=== PATIENT | female | born 1955 | race Caucasian/White ===

== ENCOUNTER 2021-05-05 18:30 | Inpatient (IN) | payer MEDICARE, OTHER ==
[~2021-05-05] VITALS: Ht 160 cm; Wt 95.3 kg
[2021-05-05] MEDS ORDERED: HYDROCODONE/APAP 10MG-325MG TAB PO ONE (19:00)
[2021-05-05] MEDS ORDERED: ACETAMINOPHEN 325 MG TAB ONE (21:44)
[2021-05-05] MEDS ORDERED: ACETAMINOPHEN 325 MG TAB PO ONE (21:45)
[2021-05-05] MEDS ORDERED: MORPHINE SULFATE INJ 2 MG/ML SYR IV PRN (23:00)
[2021-05-05] MEDS: CEFTRIAXONE 1 GM in SODIUM CHLORIDE 0.9% 50ML 50 ML IV SCH (23:10)
[2021-05-05] MEDS ORDERED: SODIUM CHLORIDE 0.9% 1000ML 1,000 ML IV STA (23:18)
[2021-05-05 23:19] LABS: BASOPHILS % 0.3 % (0.0-1.0); EOSINOPHILS % 0.3 % (0.0-6.0); HEMATOCRIT 37.4 % (34.2-44.1); HEMOGLOBIN 11.5 g/dL (12.0-16.0); LYMPHOCYTES # (AUTO) 0.8 (1.0-3.2); MEAN CORPUSCULAR HGB CONC 30.7 g/dL (31-35); MEAN CORPUSCULAR VOLUME 91.2 fL (81-99); MONOCYTES # (AUTO) 0.7 (0.2-0.8); MONOCYTES % 5.9 % (4.4-11.3); NEUTROPHILS # (AUTO) 10.4 (2.1-6.9); NEUTROPHILS % 86.2 % (38.7-80.0); PLATELET COUNT 247 x10e3/uL (140-360); RED CELL DISTRIBUTION WIDTH 13.8 % (11.7-14.4)
[2021-05-05] MEDS ORDERED: SODIUM CHLORIDE 0.9% 1000ML 1,000 ML ONE (23:23)
[2021-05-05 23:40] LABS: ALBUMIN 3.8 g/dL (3.5-5.0); ALBUMIN/GLOBULIN RATIO 1.2 (0.8-2.0); ANION GAP 16.2 mmol/L (8-16); CALCIUM 8.9 mg/dL (8.4-10.2); CREATININE, SERUM 1.15 mg/dL (0.57-1.11); POTASSIUM 4.2 mmol/L (3.5-5.1)
[2021-05-06 00:03] VITALS: BP 162/77
[2021-05-06] MEDS: ONDANSETRON HCL INJ 2MG/ML 2ML 2 MG/ML VIAL IV PRN ×4 (02:34→23:54)
[2021-05-06] MEDS: FENTANYL CITRATE/PF 100MCG/2 ML INJ IV PRN ×2 (02:34→12:04)
[2021-05-06] MEDS ORDERED: KETOROLAC TROMETHAMINE 30 MG/ML VIAL IV STA (05:58)
[2021-05-06] MEDS ORDERED: KETOROLAC TROMETHAMINE 30 MG/ML VIAL ONE (06:04)
[2021-05-06 06:30] LABS: BASOPHILS % 0.4 % (0.0-1.0); EOSINOPHILS # (AUTO) 0.2 (0.0-0.4); HEMATOCRIT 38.7 % (34.2-44.1); HEMOGLOBIN 11.5 g/dL (12.0-16.0); LYMPHOCYTES # (AUTO) 1.3 (1.0-3.2); LYMPHOCYTES % 13.1 % (18.0-39.1); MEAN CORPUSCULAR HEMOGLOBIN 27.9 pg (28-32); MEAN CORPUSCULAR HGB CONC 29.7 g/dL (31-35); MEAN CORPUSCULAR VOLUME 93.9 fL (81-99); MONOCYTES # (AUTO) 0.7 (0.2-0.8); MONOCYTES % 7.5 % (4.4-11.3); NEUTROPHILS # (AUTO) 7.5 (2.1-6.9); NEUTROPHILS % 76.7 % (38.7-80.0); PLATELET COUNT 210 x10e3/uL (140-360); RED BLOOD COUNT 4.12 x10e6/uL (3.6-5.1); RED CELL DISTRIBUTION WIDTH 13.8 % (11.7-14.4)
[2021-05-06 07:05] LABS: ALBUMIN 3.5 g/dL (3.5-5.0); ALBUMIN/GLOBULIN RATIO 1.1 (0.8-2.0); ANION GAP 14.5 mmol/L (8-16); CALCIUM 8.4 mg/dL (8.4-10.2); POTASSIUM 4.5 mmol/L (3.5-5.1)
[2021-05-06 08:44] LABS: BACTERIA,URINE FEW /HPF; CLARITY,URINE CLEAR (CLEAR); COLOR,URINE YELLOW (YELLOW); EPITHELIAL CELLS,URINE FEW /LPF; KETONES,URINE NEGATIVE (NEGATIVE); LEUKOCYTE ESTERASE ,URINE NEGATIVE (NEGATIVE); NITRITE,URINE NEGATIVE (NEGATIVE); PROTEIN,URINE DIPSTICK 1+ (NEGATIVE); RBC,URINE 0-5 /HPF (0-5); URINE UROBILINOGEN 0.2 mg/dL (0.2 - 1)
[2021-05-06] MEDS ORDERED: IPRATROPIUM BROMIDE 0.02% 2.5 ML NEB NEB STA (13:07)
[2021-05-06] MEDS ORDERED: ALBUTEROL SULF 0.083% NEB SOLN 3 ML NEB NEB STA (13:07)
[2021-05-06] MEDS ORDERED: ALBUTEROL/IPRATROPIUM 3 ML NEB ONE (13:18)
[2021-05-06 16:19] VITALS: BP 121/34
[2021-05-06 16:50] VITALS: BP 121/34
[2021-05-06] MEDS ORDERED: EVISTA60 MG PO (17:05)
[2021-05-06] MEDS ORDERED: LEVOTHYROXINE75 MCG PO (17:05)
[2021-05-06] MEDS ORDERED: ZOLPIDEM TARTRAT5 MG PO (17:05)
[2021-05-06] MEDS ORDERED: SIMVASTATIN40 MG PO (17:05)
[2021-05-06] MEDS: HYDROMORPHONE 1MG/1ML INJ IV PRN ×2 (18:15→21:17)
[2021-05-06 20:00] VITALS: BP 103/43
[2021-05-06] MEDS ORDERED: SODIUM CHLORIDE 0.9% 100 ML ONE (21:19)
[2021-05-06] MEDS: CEFTRIAXONE 1 GM in SODIUM CHLORIDE 0.9% 50ML 50 ML IV SCH (21:21)
[2021-05-06 21:46] VITALS: BP 121/34
[2021-05-06 23:43] VITALS: BP 104/48
[2021-05-06] MEDS ORDERED: NALOXONE HCL INJ 0.4 MG/ML AMP ONE (23:53)
[2021-05-07] VITALS (9 sets, daily range): BP systolic 101–150; BP diastolic 41–55
[2021-05-07] MEDS ORDERED: ALBUTEROL/IPRATROPIUM 3 ML NEB NEB ONE (00:30)
[2021-05-07] MEDS ORDERED: ALBUTEROL/IPRATROPIUM 3 ML NEB NEB PRN (00:30)
[2021-05-07] MEDS ORDERED: FUROSEMIDE INJ 10 MG/ML 2 ML VIAL IV ONE ×2 (00:30→06:55)
[2021-05-07] MEDS ORDERED: ACETAMINOPHEN 325 MG TAB PO PRN (00:30)
[2021-05-07] MEDS ORDERED: NALOXONE HCL INJ 0.4 MG/ML AMP IV PRN (02:15)
[2021-05-07] MEDS ORDERED: ENOXAPARIN SOD INJ 40 MG/0.4 ML SYR SC SCH (17:00)
[2021-05-07] MEDS: HYDROCODONE/APAP 10MG-325MG TAB PO PRN (20:11)
[2021-05-07] MEDS: CEFTRIAXONE 1 GM in SODIUM CHLORIDE 0.9% 50ML 50 ML IV SCH (20:17)
[2021-05-08 00:49] VITALS: BP 101/38
[2021-05-08] MEDS: HYDROCODONE/APAP 10MG-325MG TAB PO PRN ×3 (01:10→13:39)
[2021-05-08 04:00] VITALS: BP 95/39
[2021-05-08 07:07] VITALS: BP 121/60
[2021-05-08 08:05] VITALS: BP 121/60
[2021-05-08 11:11] VITALS: BP 110/60
[2021-05-08 15:38] VITALS: BP 113/57
[2021-05-08] MEDS ORDERED: FUROSEMIDE INJ 10 MG/ML 4 ML VIAL ONE (15:38)
[2021-05-08] MEDS ORDERED: FUROSEMIDE INJ 10 MG/ML 2 ML VIAL IV ONE (16:00)
[2021-05-09 00:49] VITALS: BP 116/56
== END 2021-05-08 16:20 | disposition home or self-care (01) | DRG 563 ==
LOC: ER 21:30 → ERHOLD 23:01 → MED/SURG 05-06 16:16
PROVIDERS: ADMIT Internal Medicine; ATTEND Internal Medicine
DX: S42.252A Displaced fracture of greater tuberosity of left humerus, initial encounter for closed fracture (principal); W19.XXXA Unspecified fall, initial encounter; J06.9 Acute upper respiratory infection, unspecified; I12.9 Hypertensive chronic kidney disease with stage 1 through stage 4 chronic kidney disease, or unspecified chronic kidney disease; N18.30 Chronic kidney disease, stage 3 unspecified; D64.9 Anemia, unspecified; Z91.81 History of falling; Z20.822 Contact with and (suspected) exposure to COVID-19
CPT/HCPCS: 36415; 71045; 80053; 81001; 82948; 85025; 97139; 99285; J0696; J1170; J1650; J1885; J1940; J2310; J2405; J3010; J7030; J7050; U0002